=== PATIENT | male | born 1990 | race Caucasian/White ===

== ENCOUNTER 2024-10-10 17:07 | Emergency (ER) | payer MEDICAID, SELFPAY ==
[2024-10-10 17:18] VITALS: BP 189/97; PULSE 88; RESP 16; TEMP 36.8; O2SAT 96; BMI 28.1
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
[2024-10-10] MEDS: ACETAMINOPHEN 500 MG TABLET 1000 MG PO (19:06)
[2024-10-10 21:21] VITALS: BP 169/117; PULSE 83; RESP 18; TEMP 36.6; O2SAT 96
[2024-10-10 21:49] VITALS: BP 169/117; PULSE 83
[2024-10-10] MEDS: cloNIDine HCL 0.1 MG TABLET PO (21:49)
[2024-10-10 22:07] VITALS: BP 175/113; PULSE 75; O2SAT 98
--- NOTE | 2024-10-10 22:12 | PC.NURSE ---
notified provier michael metcalf b/p 175/113 after clonidine
[2024-10-10 22:45] VITALS: BP 163/114; PULSE 88; RESP 16; TEMP 36.9; O2SAT 98
== END 2024-10-10 22:49 ==
PROVIDERS: Emergency Provider Emergency Medicine
DX: S09.90XA Unspecified injury of head, initial encounter (principal); S09.93XA Unspecified injury of face, initial encounter; Y04.0XXA Assault by unarmed brawl or fight, initial encounter
CPT/HCPCS: 70450; 70486; 99284; A9270